=== PATIENT | female | born 1950 | race Caucasian/White ===

== ENCOUNTER 2020-09-05 06:00 | Day surgery (SDC) | payer OTHER, SELFPAY ==
[2020-09-01 08:38] LABS: BILIRUBIN,URINE NEGATIVE (NEGATIVE); BLOOD, URINE NEGATIVE (NEGATIVE); CLARITY/URINE CLEAR (CLEAR); COLOR,URINE YELLOW (YELLOW); GLUCOSE,URINE NEGATIVE (NEGATIVE); KETONES,URINE NEGATIVE (NEGATIVE); LEUKOCYTE ESTERASE ,URINE NEGATIVE (NEGATIVE); NITRITE, URINE NEGATIVE (NEGATIVE); PROTEIN URINE NEGATIVE (NEGATIVE); UROBILINOGEN,URINE 0.2 (0.2-1.0)
[2020-09-01 08:46] LABS: BASOPHILS % (AUTO) 0.6 % (0.0-2.0); EOSINOPHILS # (AUTO) 0.1 K/uL (0.0-0.4); EOSINOPHILS % (AUTO) 1.4 % (0.0-4.0); HEMATOCRIT 43.1 % (36-48); HEMOGLOBIN 14.3 g/dL (12.0-16.0); MEAN CORPUSCULAR HEMOGLOBIN 31 pg (27-31); MEAN CORPUSCULAR HGB CONC 33 % (32-36); MEAN CORPUSCULAR VOLUME 92 fL (79.0-98.0); MONOCYTES # (AUTO) 0.6 K/uL (0.0-1.0); MONOCYTES % (AUTO) 11.2 % (1.7-9.3); NEUTROPHILS # (AUTO) 2.6 K/uL (1.8-7.7); NEUTROPHILS % (AUTO) 48.8 % (40.0-70.0); PLATELET COUNT (AUTO) 165 K/uL (130-430); RED BLOOD CELL COUNT(AUTO) 4.69 MIL/uL (4.2-6.2); WHITE BLOOD COUNT (AUTO) 5.3 K/uL (4.8-10.8)
[2020-09-01 08:56] LABS: ALBUMIN 3.8 g/dL (3.4-4.8); CALCIUM 9.2 mg/dL (8.4-11.0); CREATININE 0.96 mg/dL (0.55-1.30); POTASSIUM 4.3 mmol/L (3.5-5.1); TOTAL BILIRUBIN 0.7 mg/dL (0.0-1.0)
[2020-09-01 09:05] LABS: INR 0.9 (0.8-1.2); PROTHROMBIN TIME 9.6 SECS (9.5-12.5)
[~2020-09-05] VITALS: Ht 172.7 cm; Wt 85.3 kg
[2020-09-05] MEDS ORDERED: CEFAZOLIN SOD 2 GM in D5W 50 ML IV ONE (07:00)
[2020-09-05] MEDS ORDERED: LR 1,000 ML IV SCH (08:00)
[2020-09-05] MEDS ORDERED: HYDROmorphone 2 MG/ML VIAL IVP PRN (08:00)
[2020-09-05] MEDS ORDERED: KETOROLAC TROMETHAMINE 30 MG VIAL IVP PRN (08:00)
[2020-09-05] MEDS ORDERED: ONDANSETRON HCL 4 MG/2 ML VIAL IVP PRN ×2 (08:00→08:45)
[2020-09-05] MEDS ORDERED: HYDROmorphone 1 MG/ML INJ. CARTRIDGE IVP PRN ×2 (08:00)
[2020-09-05] MEDS ORDERED: HYDROcodone/ACETAMIN 5-325 MG TAB (NORCO/ VICODIN) PO PRN ×2 (08:45)
[2020-09-05] MEDS ORDERED: MIDAZOLAM HCL 5 MG/5 ML VIAL ONE (12:38)
[2020-09-05] MEDS ORDERED: DIPHENHYDRAMINE INJ 50 MG/ML VIAL ONE (12:39)
[2020-09-05 14:38] VITALS: BP_SYST 141
== END 2020-09-05 11:05 | disposition home or self-care (01) ==
LOC: SMU 06:00 → SDS 06:00
PROVIDERS: ATTEND Obstetrics & Gynecology Gynecology
DX: N95.0 Postmenopausal bleeding (principal); R93.89 Abnormal findings on diagnostic imaging of other specified body structures; I10 Essential (primary) hypertension; E11.9 Type 2 diabetes mellitus without complications; E66.01 Morbid (severe) obesity due to excess calories; K21.9 Gastro-esophageal reflux disease without esophagitis; G43.909 Migraine, unspecified, not intractable, without status migrainosus; Z20.822 Contact with and (suspected) exposure to COVID-19; Z79.899 Other long term (current) drug therapy
CPT/HCPCS: 36415 ×2; 58558; 71046; 80053; 81003; 85025; 85610; 85730; 86886 ×2; 86900 ×2; 86901 ×2; 87086; 88305; 93005; C1819; J0690; J7060; U0003; J1200; J2250